=== PATIENT | female | born 1995 | race Caucasian/White ===

== ENCOUNTER 2018-05-15 22:38 | Emergency (ER) | payer MEDICAID, OTHER ==
[2018-05-15 22:45] VITALS: RESP 16
[2018-05-15] MEDS ORDERED: AMOXIC-POT CLAV 875MG STARTER 2 EACH TABLET PO STA (23:01)
[2018-05-15] MEDS ORDERED: LIDOCAINE 1% INJ 10MG/ML (20 ML MDV) SQ ONE (23:01)
--- NOTE | 2018-05-15 23:22 | XR ---
EXAMINATION TYPE: XR forearm LT DATE OF EXAM: 05/15/2018 COMPARISON: NONE HISTORY: Dog bite TECHNIQUE: 2 views FINDINGS: There is soft tissue minimal deformity at the mid forearm consistent with laceration and do gbite. Elbow joint is intact. Wrist joint appears intact. IMPRESSION: Soft tissue deformity and probably some soft tissue air. No fracture seen.
--- NOTE | 2018-05-16 00:13 | ED ---
Animal Bite HPI - General Source: patient Mode of arrival: ambulatory Limitations: no limitations <Magda Garay - Last Filed: 05/16/18 03:10> <Maritza Dowd - Last Filed: 05/16/18 04:26> - General Chief Complaint: Animal Bite Stated Complaint: Dog bite Time Seen by Provider: 05/15/18 22:55 - History of Present Illness Initial Comments: 22-year-old female patient presents to the emergency department today for evaluation of a dog bite to the left volar forearm. Patient states approximately 30 minutes ago she came over to her family's house and was reintroducing herself to the dog when he nipped at her arm. States that he did by her through her shirt. States that she is having some local discomfort to the area but denies any pain radiating up the arm or down to the hand. Denies any numbness or tingling to the hand. She states that she did rinse the wound with water but did not use any soap. She is unsure when she had her last tetanus vaccine. States that the dog is up-to-date on all vaccinations. She denies any other injuries. Patient denies any headache, neck pain, back pain, chest pain, shortness of breath, dizziness, weakness, abdominal pain, nausea, vomiting, or difficulties with bowel movements or urination. (Magda Garay) - Related Data Home Medications Medication Instructions Recorded Confirmed Nilsa 1 tab PO HS 05/15/18 05/15/18 Previous Rx's Medication Instructions Recorded Amoxic-Pot Clav 875-125Mg 1 tab PO Q12HR #20 tablet 05/16/18 [Augmentin 875-125] Allergies Allergy/AdvReac Type Severity Reaction Status Date / Time sulfamethoxazole Allergy Rash/Hives Verified 05/15/18 23:00 [From Bactrim] trimethoprim [From Bactrim] Allergy Rash/Hives Verified 05/15/18 23:00 codeine AdvReac Nausea & Verified 05/15/18 23:00 Vomiting & Diarrhea Review of Systems ROS Other: All systems not noted in ROS Statement are negative. <Magda Garay - Last Filed: 05/16/18 03:10> ROS Other: All systems not noted in ROS Statement are negative. <Maritza Dowd - Last Filed: 05/16/18 04:26> ROS Statement: Those systems with pertinent positive or pertinent negative responses have been documented in the HPI. Past Medical History Past Medical History: No Reported History History of Any Multi-Drug Resistant Organisms: None Reported Past Surgical History: No Surgical Hx Reported Past Psychological History: No Psychological Hx Reported Smoking Status: Never smoker Past Alcohol Use History: Occasional Past Drug Use History: None Reported <Magda Garay - Last Filed: 05/16/18 03:10> General Exam Limitations: no limitations General appearance: alert, in no apparent distress, other (This is a well- developed, well-nourished adult female patient in no acute distress. Vital signs upon presentation are temperature 98.3F, pulse 76, respirations 16, blood pressure 122/82, pulse ox 100% on room air.) Eye exam: Present: normal appearance, PERRL, EOMI. Absent: scleral icterus, conjunctival injection, periorbital swelling ENT exam: Present: normal exam, normal oropharynx, mucous membranes moist Respiratory exam: Present: normal lung sounds bilaterally. Absent: respiratory distress, wheezes, rales, rhonchi, stridor Cardiovascular Exam: Present: regular rate, normal rhythm, normal heart sounds. Absent: systolic murmur, diastolic murmur, rubs, gallop, clicks Extremities exam: Present: full ROM, normal capillary refill, other (Patient has 2 small puncture wounds and one larger puncture type wound to the mid volar forearm. There is surrounding swelling. Remainder of skin is pink, warm, and dry. Cap refills less than 3 seconds. Patient exhibits full range of motion without pain or limitation to the wrist and hand as well as the elbow.). Absent : normal inspection, tenderness, pedal edema, joint swelling, calf tenderness Neurological exam: Present: alert, oriented X3, CN II-XII intact Psychiatric exam: Present: normal affect, normal mood Skin exam: Present: warm, dry, intact, normal color. Absent: rash <Magda Garay M - Last Filed: 05/16/18 03:10> Vital Signs 05/15/18 05/16/18 22:39 01:05 Temperature 98.3 F 98.0 F Pulse Rate 76 72 Respiratory 16 16 Rate Blood Pressure 122/82 133/80 O2 Sat by Pulse 100 100 Oximetry Procedures - Laceration Laceration #1 Indication: other (Puncture wound/dog bite) Site: upper extremity (Volar forearm) Anesthetic Used: lidocaine 1% Anesthesia Technique: local infiltration Amount (mls): 6 Pre-repair: irrigated extensively Patient Tolerated Procedure: well, no complications <Magda Garay - Last Filed: 05/16/18 03:10> Medical Decision Making - Radiology Data Radiology results: report reviewed, image reviewed <Magda Garay - Last Filed: 05/16/18 03:10> <Maritza Dowd - Last Filed: 05/16/18 04:26> - Medical Decision Making 22-year-old female patient presented to the emergency department today for evaluation of dog bite to the left forearm. Physical examination did reveal 2 small puncture wounds and one larger puncture wound to the volar aspect of the midforearm. Area was cleaned and irrigated extensively. She was started on Augmentin. We did update her tetanus vaccine. X-ray showed soft tissue air consistent with laceration. She is instructed to keep wound clean and dry. She is instructed to follow-up with her primary care physician for recheck of the wound in 2 days. She is educated regarding signs or symptoms of infection. Return parameters were discussed in detail. She verbalizes understanding and agrees with this plan. (Magda Garay) I was available for consultation in the emergency department. The history and physical exam were done by the midlevel provider. I was consulted for this patient's care. I reviewed the case with the midlevel provider and based on their presentation of the patient, I agree with the assessment, medical decision making and plan of care as documented. (Maritza Dowd) Disposition Is patient prescribed a controlled substance at d/c from ED?: No Time of Disposition: 00:13 <Magda Garay - Last Filed: 05/16/18 03:10> <Maritza Dowd - Last Filed: 05/16/18 04:26> Clinical Impression: Dog bite of left forearm Disposition: HOME SELF-CARE Condition: Good Instructions (If sedation given, give patient instructions): Animal Bite (ED) Additional Instructions: Cleanse wound twice daily with warm water and antibacterial soap. Monitor for signs or symptoms of infection including but not limited to redness, swelling, drainage of pus, fever, or chills. Complete antibiotic prescription and full. Follow-up with your primary care physician to have the wound rechecked in 1-2 days. Return to the emergency department for any other new, worsening, or concerning symptoms. Prescriptions: Amoxic-Pot Clav 875-125Mg [Augmentin 875-125] 1 tab PO Q12HR #20 tablet Referrals: Ananda Lopez MD [Primary Care Provider] - 1-2 days
[2018-05-16] MEDS ORDERED: DIPH,PERTUS(ACELL)TETVAC-LF 0.5 ML VIAL IM ONE (00:25)
[2018-05-16 01:06] VITALS: BP 133/80; PULSE 72; TEMP 98
--- NOTE | 2018-05-17 04:21 | CDI ---
Documentation Clarification OP Dear Jarrod Escobar Please provide forearm puncture wound repair length & material. Thank you, Moises Ricks Heavy Duty Mechanic If you have any questions, please contact Or Assistant at [phone] Provided an addendum. No suture material was used. Wounds were puncture wounds, no length required. JERRYD
--- NOTE | 2018-05-22 17:08 | ED ---
Disposition Is patient prescribed a controlled substance at d/c from ED?: No Clinical Impression: Dog bite of left forearm Disposition: HOME SELF-CARE Condition: Good Instructions (If sedation given, give patient instructions): Animal Bite (ED) Additional Instructions: Cleanse wound twice daily with warm water and antibacterial soap. Monitor for signs or symptoms of infection including but not limited to redness, swelling, drainage of pus, fever, or chills. Complete antibiotic prescription and full. Follow-up with your primary care physician to have the wound rechecked in 1-2 days. Return to the emergency department for any other new, worsening, or concerning symptoms. Prescriptions: Amoxic-Pot Clav 875-125Mg [Augmentin 875-125] 1 tab PO Q12HR #20 tablet Referrals: Ananda Lopez MD [Primary Care Provider] - 1-2 days Procedures - Laceration Laceration #1 Indication: other (Puncture wound) Depth: simple, single layer Anesthetic Used: lidocaine 1% Anesthesia Technique: local infiltration Amount (mls): 10 Pre-repair: wound explored, irrigated extensively Patient Tolerated Procedure: well - Laceration Laceration #1 Additional Comments: Lidocaine was used to anesthetize the area only. There were no sutures placed as this was a dog bite, be left open. Patient tolerated procedure well. (Magda Garay)
== END 2018-05-16 01:06 | disposition home or self-care (01) ==
LOC: EC 22:38
DX: S51.852A Open bite of left forearm, initial encounter (principal); Z79.3 Long term (current) use of hormonal contraceptives; Z88.2 Allergy status to sulfonamides; Z88.5 Allergy status to narcotic agent; Z23 Encounter for immunization; W54.0XXA Bitten by dog, initial encounter
CPT/HCPCS: 99283; 90471; 73090; 90715; J2001

== ENCOUNTER → 2024-02-29 | Outpatient (CLI) | payer MEDICAID ==
[2024-02-29 18:13] LABS: Basophils # (A) 0.08 X 10*3/uL (0.00-0.10); Basophils % (A) 0.9 %; Eosinophils # (A) 0.06 X 10*3/uL (0.04-0.35); Eosinophils % (A) 0.6 %; HCT 43.5 % (37.2-46.3); HGB 14.1 g/dL (12.0-15.0); Lymphocytes # (A) 2.79 X 10*3/uL (0.90-5.00); Lymphocytes % (A) 29.7 %; MCH 30.7 pg (27.0-32.0); MCHC 32.4 g/dL (32.0-37.0); MCV 94.6 FL (80.0-97.0); Monocytes # (A) 0.53 X 10*3/uL (0.20-1.00); Monocytes % (A) 5.6 %; NRBC Per 100 WBC 0 X 10*3/uL (0.00-0.01); Neutrophils % (A) 62.9 %; Platelet Count 268 X 10*3/uL (140-440); RDW 12.1 % (11.5-14.5); WBC 9.39 X 10*3/uL (4.50-10.00)
[2024-02-29 19:34] LABS: ALT 28 U/L (8-44); AST 24 U/L (13-35); Albumin 4.5 g/dL (3.8-4.9); Alkaline Phosphatase 77 U/L (41-126); BUN/Creat Ratio 14.29 Ratio (12.00-20.00); Calcium 9.5 mg/dL (8.7-10.3); Carbon Dioxide 23.8 mmol/L (21.6-31.8); Chloride 103 mmol/L (96-109); Chol/HDL Ratio 3.31 Ratio; Globulin 2.5 g/dL (1.6-3.3); Glucose 85 mg/dL (70-110); HCG,Quantitative Serum <3.0 mIU/mL (0.0-6.0); Potassium 4.1 mmol/L (3.5-5.5); Sodium 139 mmol/L (135-145); Total Bilirubin 0.4 mg/dL (0.3-1.2); VLDL Calculation 16.22 mg/dL (5.00-40.00)
[2024-02-29 20:32] LABS: HIV 2 AB Non-Reactive (Non-Reactive); HIV AB P24 Non-Reactive (Non-Reactive); HIV P24 AG Non-Reactive (Non-Reactive)
== END | disposition home or self-care (01) ==
LOC: LABWHC1 12:18
PROVIDERS: ATTEND Family Medicine
DX: Z00.00 Encounter for general adult medical examination without abnormal findings (principal); Z20.2 Contact with and (suspected) exposure to infections with a predominantly sexual mode of transmission; E55.9 Vitamin D deficiency, unspecified; N92.6 Irregular menstruation, unspecified; F41.9 Anxiety disorder, unspecified
CPT/HCPCS: 36415; 80053; 80061; 82306; 84443; 84702; 85025; 87390; 87591